=== PATIENT | male | born 1950 | race Caucasian/White ===

== ENCOUNTER 2018-06-21 16:09 | Inpatient (IN) | payer OTHER ==
--- NOTE | 2018-06-21 16:39 | ERNOTE ---
<Braxton Kumari - Last Filed: 06/21/18 18:59> Medical Problem HPI - General Chief Complaint: Fever Time Seen by Provider: 06/21/18 16:10 - Immun/Allergies/Home Medications Immunizations: IMMUNIZATION HX Immunizations Up to Date Yes History of Influenza Vaccine Yes Hx Pneumococcal Vaccination Yes Allergies/Adverse Reactions: Allergies No Known Allergies Allergy (Verified 04/16/18 19:40) Home Medications: HOME MEDICATIONS Furosemide 20 mg PO DAILY 06/21/18 [Last Taken Unknown] Gemfibrozil 600 mg PO BID 06/21/18 [Last Taken Unknown] Levothyroxine Sodium [Synthroid] 100 mcg PO DAILY 06/21/18 [Last Taken Unknown] Lisinopril 2.5 mg PO DAILY 06/21/18 [Last Taken Unknown] glipiZIDE [Glipizide] 5 mg PO DAILY 06/21/18 [Last Taken Unknown] metFORMIN HCL [Glucophage] 1,000 mg PO DAILY 06/21/18 [Last Taken Unknown] Medical History (Last Reviewed 06/21/18 @ 16:30 by REBEKAH Cook) Cirrhosis of liver Depression Deviated septum Diabetes type 2, controlled HTN (hypertension) Hx of labyrinthitis Hyperlipemia Hypothyroidism Malignant neoplasm of right kidney Nonalcoholic steatohepatitis PTSD (post-traumatic stress disorder) Surgical History: Surgical History (Last Reviewed 06/21/18 @ 16:30 by REBEKAH Cook) History of nephrectomy Family History: Family History (Last Reviewed 06/21/18 @ 16:30 by REBEKAH Cook) Family/Other Diabetes Mother Myocardial infarction Father Myocardial infarction Social History: Preferred Language Croatian Do you have any judaism or No cultural preference? Smoking Status Never smoker Alcohol Use none Drug Use none ED Progress - Vital Signs Vital Signs: Vital Signs 06/21/18 16:23 06/21/18 16:34 06/21/18 16:57 Temperature 38.1 C H 38.1 C H Pulse Rate 113 H 113 H 105 H Respiratory Rate 23 H 23 H 31 H Blood Pressure 151/76 H 151/76 H 151/76 H O2 Sat by Pulse Oximetry 96 96 95 06/21/18 17:27 06/21/18 18:05 Temperature 38.0 C Pulse Rate 95 110 H Respiratory Rate 21 H 58 H Blood Pressure 133/60 152/79 H O2 Sat by Pulse Oximetry 95 95 - Progress/Reassessment Chief Complaint: Fever Plan - Plan Plan: Under ultrasound guidance and ideal spot was determined for the paracentesis of the abdomen. Betadine was applied for sterilization of the site and after lidocaine 2 for anesthesia, an 11 blade was used to make a small incision. Standard paracentesis trocar with the catheter was put in place and approximately 10 L plus of fluid was removed from the patient's abdomen. Patient tolerated the procedure very well and the area was cleaned and a bandage was put in place. Patient's vital signs remained stable through the entire process and the fluid will be sent over to laboratory for thorough evaluation. Signed: Braxton Kumari DO Departure Clinical Impression: Liver cirrhosis Qualifiers: Hepatic cirrhosis type: unspecified hepatic cirrhosis Ascites presence: with ascites Qualified Code(s): K74.60 - Unspecified cirrhosis of liver; R18.8 - Other ascites - Departure Disposition: Short Term Hospital Inpatient Condition: Good <Viktoria Eaton - Last Filed: 06/21/18 19:15> Medical Problem HPI - Narrative Date of Service: 06/21/18 - General Source: patient Exam Limitations: no limitations - Immun/Allergies/Home Medications Immunizations: IMMUNIZATION HX Immunizations Up to Date Yes History of Influenza Vaccine Yes Hx Pneumococcal Vaccination Yes - Pain Score Pain Score #1 Pain Score: 0 - History of Present History Narrative: The patient is a 68 year old male who presents for abdominal distention with 35 pound weight gain which has been gradual since April. There are associated symptoms of productive cough, dyspnea and malaise. The patient denies pain, appears uncomfortable. There are no alleviating factors. There are no aggravating factors. Previous treatments have included: none. The past medical history includes: renal carcinoma with nephrectomy, non-alcoholic liver cirrhosis, hypothyroid, HTN, HLD, DM II and depression. . The social history is negative. The patient has had no ill contacts. Patient presents to ER with instruction from JOSÉ MIGUEL Rico due to 35 pound weight gain with increasing abdominal girth since April. JOSÉ MIGUEL Rico referred patient to hospital due to no bed availability and need for paracentesis. Review of Systems - Review of Systems Constitutional: Present: chills, fatigue, malaise, other - weight gain EYE: Present: no symptoms reported ENT: Present: no symptoms reported Respiratory: Present: shortness of breath, cough Cardiology: Present: no symptoms reported. Absent: chest pain Gastrointestinal/Abdominal: Present: abdominal pain, other - increased abdominal girth. Absent: nausea, vomiting, diarrhea Genitourinary: Present: frequency. Absent: dysuria Musculoskeletal: Present: no symptoms reported Skin: Present: other - edema Neurological: Present: no symptoms reported Endocrine: Present: no symptoms reported Hematologic/Lymphatic: Present: no symptoms reported Psych: Present: no symptoms reported All Other Systems: All systems neg except as marked Medical History (Last Reviewed 06/21/18 @ 16:30 by REBEKAH Cook) Cirrhosis of liver Depression Deviated septum Diabetes type 2, controlled HTN (hypertension) Hx of labyrinthitis Hyperlipemia Hypothyroidism Malignant neoplasm of right kidney Nonalcoholic steatohepatitis PTSD (post-traumatic stress disorder) Surgical History: Surgical History (Last Reviewed 06/21/18 @ 16:30 by REBEKAH Cook) History of nephrectomy Family History: Family History (Last Reviewed 06/21/18 @ 16:30 by REBEKAH Cook) Family/Other Diabetes Mother Myocardial infarction Father Myocardial infarction Social History: Preferred Language Croatian Do you have any judaism or No cultural preference? Smoking Status Never smoker Alcohol Use none Drug Use none Physical Exam - Physical Exam General Appearance: Present: wd/wn, alert, no apparent distress Head Exam: Present: normal inspection Eye Exam: Normal inspection: bilateral Respiratory: Present: normal breath sounds, lungs clear, accessory muscle use Cardiovascular/Chest: Present: no murmur, tachycardia Peripheral Pulses: N=norm/S=strong/W=weak/B=bound/A=absent: Radial (R): Normal Gastrointestinal/Abdominal: Present: normal bowel sounds, tenderness - diffuse, distended, other - firm 2+ pitting edema to abdomen with firmness and distention, slight erythema to lower abdomen Extremity Exam: Present: extremity edema - 2+ pitting bilateral lower extremities Neurological Exam: Present: alert, oriented, normal mood/affect Skin Exam: Present: normal color ED Progress - Date and Time Seen: Date and Time: 06/21/18 19:09 Dr. Kumari was in with patient for paracentesis, patient tolerated procedure well. 10 L plus of peritoneal fluid removed. Fluid dark nicolas in color, wound was covered with bandage post procedure, bleeding controlled, patient tolerated procedure well. Patient will be admitted under the care of Dr. Rivas for treatment of spontaneous bacterial peritonitis and pneumonia. Patient appears to be much more comfortable postprocedure and markedly improved with ease of respirations. - Results and Orders Patient's Lab Results:: I have reviewed the patient's lab results. - Vital Signs Patient's Vital Signs:: I have reviewed the patient's vital signs. Vital Signs: Vital Signs 06/21/18 16:23 Temperature 38.1 C H Pulse Rate 113 H Respiratory Rate 23 H Blood Pressure 151/76 H O2 Sat by Pulse Oximetry 96 - EKG EKG: other - sinus tachycardia EKG read: Reviewed by me EKG Comments: reviewed with . - X-Ray X-Ray #1 X-Ray: chest Interpretation: Reviewed by me X-ray Comments: X-RAY REPORT ~[id number] RAD/Chest PA & Lateral *~ Exam Date: 06/21/2018 17:55 Ordering Physician: Viktoria Eaton HISTORY: fever TWO VIEW CHEST Comparison: NONE . Comparison is made with prior chest CT dated 05/04/2018 Technique: Upright frontal and lateral views of the chest were obtained. Findings: The cardiac silhouette is within normal limits of size. The mediastinum and hilum are with in normal limits. Again seen is bilateral pleural plaque. The lung markings are little prominent in the right infrahilar area and periphery of the left lower lung zone, which may reflect subtle infiltrates. The remaining lung lyons appear clear. I do not see evidence for pleural effusion. IMPRESSION: 1. BILATERAL PLEURAL PLAQUE. 2. QUESTIONABLE SUBTLE INFILTRATES IN RIGHT INFRAHILAR AND LEFT LOWER LUNG ZONE Electronically signed by Dwight Alcantar M.D.. - CT/Ultrasound CT/Ultrasound Narrative: X-RAY REPORT ~[id number] ULT/US Abd Single Organ (Limited)~ Exam Date: 06/21/2018 16:46 Ordering Physician: Viktoria Eaton History: Ascites. Technique: Multiple transabdominal grayscale, color ultrasound images of the abdomen were performed to evaluate for ascites. Comparisons: None available. Findings: There is a small amount of ascites visualized throughout the abdomen including the right upper, left upper, right lower and left lower quadrant. IMPRESSION: Small amount of abdominal ascites throughout the four quadrants of the abdomen. Electronically signed by Dayna Patterson D.O..
[2018-06-21 16:59] LABS: Hematocrit 30.4 % (42.0-52.0); Hemoglobin 10.1 gm/dL (13.5-18.0); Mean Cell Volume 89.4 fl (78-100); Mean Corpuscular Hemoglobin 29.7 pg (27-31); Mean Corpuscular Hgb Conc 33.2 g/dl (32-36); Mean Platelet Volume 9.7 fl (8-11.3); Neutrophil # 3.6 K/mm3 (1.3-6.0); Neutrophil % 64.6 % (42-75.0); Platelet Count 163 K/mm3 (150-450); Red Cell Distribution Width 19.9 % (11.5-14.0); White Blood Count 5.6 K/mm3 (4.0-10.5)
[2018-06-21 17:08] LABS: Albumin * 1.8 gm/dl (3.4-5.0); Anion Gap 10.6 mmol/L (6.8-13.8); Bilirubin, Total 1.6 mg/dL (0.0-1.1); Ca. Corrected For Albumin 9.5 mg/dL (8.4-10.2); Calcium * 8.1 mg/dL (7.9-10.9); Potassium 3.6 mmol/L (3.4-4.6); Total Protein 6.3 gm/dL (6.2-8.2)
[2018-06-21] MEDS ORDERED: IBUPROFEN 600 MG TABLET PO ONE (18:00)
[2018-06-21 18:54] LABS: Magnesium 1.7 mg/dL (1.2-2.8)
[2018-06-21] MEDS ORDERED: IBUPROFEN 600 MG TABLET ONE (19:01)
[2018-06-21 19:02] LABS: Prothrombin Time (Patient) 16.1 Seconds (9.0-11.0)
[2018-06-21 19:05] LABS: INR 1.6 INR (0.90-1.10)
[2018-06-21] MEDS: CEFOTAXIME SODIUM 2,000 MG in DEXTROSE 5 % IN WATER 100 ML IV SCH ×2 (19:23)
[2018-06-21 19:39] LABS: Body Fluid WBC 3484 /uL (0-1000)
--- NOTE | 2018-06-21 20:54 | HP ---
Chief Complaint - Chief Complaint Date of Service: 06/21/18 Time of Service: 08:30 Chief Complaint: Abdominal swelling, sob, cough, History of Present Illness: 2 months ago the patient was diagnosed with renal cell carcinoma and had the right nephrectomy done. All the procedure he began developing increasing abdominal girth. This was interfering with his ability to breathe: Shortness of breath and also increased leg edema. [facility] [place] [facility]. Doctor Kenyetta performed a ultrasound guided paracentesis in the emergency room and drained over 10 L of fluid from the abdomen. Naturally Mr. Go is feeling much better and breathing much easier now. He had a CT scan of the chest and abdomen shows some residual ascites still present and the chest x-ray shows perihilar pneumonitis. He is diagnosed with nonalcoholic hepatic steatosis with cirrhosis and with spontaneous bacterial peritonitis etiology unknown. This time of my exam he is comfortable conversational and in good spirits. I anticipate length of stay of about 3 days. Medical History (Last Reviewed 06/21/18 @ 19:56 by Uma Patterson RN) Cirrhosis of liver Depression Deviated septum Diabetes type 2, controlled HTN (hypertension) Hx of labyrinthitis Hyperlipemia Hypothyroidism Malignant neoplasm of right kidney Nonalcoholic steatohepatitis PTSD (post-traumatic stress disorder) Surgical History: Surgical History (Last Reviewed 06/21/18 @ 19:56 by Uma Patterson RN) History of nephrectomy Family History: Family History (Last Reviewed 06/21/18 @ 19:56 by Uma Patterson RN) Family/Other Diabetes Mother Myocardial infarction Father Myocardial infarction Social History: Patient Lives/Resources Home Utilized Occupation [employer] at [employer] Preferred Language Kittitian Do you have any synagogue or Yes: zoroastrian cultural preference? Smoking Status Former smoker Have you smoked in the past 12 No months Alcohol Use none Drug Use none Review Of Systems (GEN) - Review of Systems Generalized/Overall Review: Present: Weakness, Chills, Fever, Weight gain - He estimates 35 pounds of weight gain in the past 2 months. EENTM: Present: No Symptoms Reported Respiratory: Present: Cough, Shortness of Breath Cardiac: Present: No Symptoms Reported Abdominal: Present: Abdominal Pain, Other - Marked increase in abdominal girth due to ascites Genitourinary: Present: No Symptoms Reported, Other - Right renal carcinoma with right nephrectomy 2 months ago Musculoskeletal: Present: No Symptoms Reported Neurological: Present: No Symptoms Reported Skin: Present: No Symptoms Reported Endocrine: Present: No Symptoms Reported - Mr. Go notes that he was airborne [place] and the lower and was exposed to agent orange [facility]. [facility] but he knows that he was. He believes SY he developed a renal carcinoma and may be other problems that he is having at this time. Immunizations: IMMUNIZATION HX Immunizations Up to Date Yes History of Influenza Vaccine Yes Hx Pneumococcal Vaccination Yes Allergies/Adverse Reactions: Allergies Allergy/AdvReac Type Severity Reaction Status Date / Time No Known Allergies Allergy Verified 06/21/18 19:57 Home Medications: HOME MEDICATIONS Furosemide 20 mg PO DAILY 06/21/18 [Last Taken Unknown] Gemfibrozil 600 mg PO BID 06/21/18 [Last Taken Unknown] Levothyroxine Sodium [Synthroid] 100 mcg PO DAILY 06/21/18 [Last Taken Unknown] Lisinopril 2.5 mg PO DAILY 06/21/18 [Last Taken Unknown] glipiZIDE [Glipizide] 5 mg PO DAILY 06/21/18 [Last Taken Unknown] metFORMIN HCL [Glucophage] 1,000 mg PO DAILY 06/21/18 [Last Taken Unknown] Exam - Exam Vital Signs: Vital Signs - Last Taken Temp 37.1 C 06/21/18 19:31 Pulse 97 06/21/18 19:31 Resp 20 06/21/18 19:31 BP 124/65 06/21/18 19:31 Pulse Ox 98 06/21/18 19:31 Constitutional: Present: Alert, Oriented x3, Cooperative, Well developed, Well nourished, Mild distress, Middle aged, Obese ENT Exam: Present: normal ENT inspection, hearing grossly normal, pharynx normal , TMs normal Eye Exam: bilateral eye: normal inspection, PERRL, EOMI Neck: Present: non-tender, full range of motion, supple, normal inspection, trachea midline Back Exam: Present: normal inspection, no CVA tenderness, no vertebral tenderness Breasts: Present: Exam deferred Respiratory: Present: chest non-tender, lungs clear, normal breath sounds, accessory muscle use - Resolved after paracentesis. Cardiovascular/Chest: Present: normal peripheral pulses, regular rate, rhythm, no chest tenderness, no gallop, no JVD, no murmur, no rub, edema Peripheral Pulses: carotid (R): 2+, carotid (L): 2+, radial (R): 2+, radial (L) : 2+ Abdomen: Present: Normal bowel sounds, soft, nontender, nondistended, no rebound tenderness - Despite of removing over 10 L of ascites fluid he continues to have a positive succussion splash. /Rectal: Present: Exam deferred Extremity: Present: normal range of motion, non-tender, normal inspection, swelling Skin Exam: Present: normal color, warm/dry, no cyanosis, cool/dry, diaphoresis. Absent: jaundice Lymphatic: Present: no adenopathy Neurologic: Present: can vacuum tester II-XII nml as tested, no motor/sensory deficits, alert , normal mood/affect, oriented x 3 Appearance: Present: appropriate appearance, appropriate insight Eye contact: Present: cooperative, good eye contact, normal speech Thoughts: Present: normal thought pattern, no apparent hallucination Diagnostic Studies: Abnormal Lab Results 06/21/18 06/21/18 06/21/18 Range/Units 16:50 16:50 18:55 RBC 3.40 L (4.7-6.0) M/mm3 Hgb 10.1 L (13.5-18.0) gm/dL Hct 30.4 L (42.0-52.0) % RDW 19.9 H (11.5-14.0) % Lymphocytes % 16.7 L (20-51) % Monocytes % 15.1 H (0.0-9) % Lymphocytes # 0.93 L (1.5-3.5) k/mm3 PT (9.0-11.0) Seconds INR (Anticoag Therapy) (0.90-1.10) INR Total Bilirubin 1.6 H (0.0-1.1) mg/dL ALT 18 L (19-67) U/L Albumin 1.8 L (3.4-5.0) gm/dl Fluid WBC 3484 H (0-1000) /uL Fluid RBC Greater than 1000.0 H (0-1000) /uL 06/21/18 Range/Units Unknown RBC (4.7-6.0) M/mm3 Hgb (13.5-18.0) gm/dL Hct (42.0-52.0) % RDW (11.5-14.0) % Lymphocytes % (20-51) % Monocytes % (0.0-9) % Lymphocytes # (1.5-3.5) k/mm3 PT 16.1 H (9.0-11.0) Seconds INR (Anticoag Therapy) 1.60 H (0.90-1.10) INR Total Bilirubin (0.0-1.1) mg/dL ALT (19-67) U/L Albumin (3.4-5.0) gm/dl Fluid WBC (0-1000) /uL Fluid RBC (0-1000) /uL Laboratory Results WBC 5.6 K/mm3 (4.0-10.5) 06/21/18 16:50 RBC 3.40 M/mm3 (4.7-6.0) L 06/21/18 16:50 Hgb 10.1 gm/dL (13.5-18.0) L 06/21/18 16:50 Hct 30.4 % (42.0-52.0) L 06/21/18 16:50 MCV 89.4 fl (78-100) 06/21/18 16:50 MCH 29.7 pg (27-31) 06/21/18 16:50 MCHC 33.2 g/dl (32-36) 06/21/18 16:50 RDW 19.9 % (11.5-14.0) H 06/21/18 16:50 Plt Count 163 K/mm3 (150-450) 06/21/18 16:50 MPV 9.7 fl (8-11.3) 06/21/18 16:50 Immature Gran % (Auto) 0.40 % (0.001-0.429) 06/21/18 16:50 Immature Gran # (Auto) 0.02 K/mm3 (0.000-0.0310) 06/21/18 16:50 Neutrophils % 64.6 % (42-75.0) 06/21/18 16:50 Lymphocytes % 16.7 % (20-51) L 06/21/18 16:50 Monocytes % 15.1 % (0.0-9) H 06/21/18 16:50 Eosinophils % 2.7 % (0.0-3.0) 06/21/18 16:50 Basophils % 0.5 % (0.0-1.0) 06/21/18 16:50 Nucleated RBC % 0.0 k/mm3 (0-1) 06/21/18 16:50 Neutrophils # 3.6 K/mm3 (1.3-6.0) 06/21/18 16:50 Lymphocytes # 0.93 k/mm3 (1.5-3.5) L 06/21/18 16:50 Monocytes # 0.8 k/mm3 (0.0-1.0) 06/21/18 16:50 Eosinophils # 0.2 k/mm3 (0.0-0.7) 06/21/18 16:50 Absolute Basophils 0.0 k/mm3 (0.0-0.1) 06/21/18 16:50 PT 16.1 Seconds (9.0-11.0) H 06/21/18 Unknown INR (Anticoag Therapy) 1.60 INR (0.90-1.10) H 06/21/18 Unknown Sodium 137 mmol/L (132-142) 06/21/18 16:50 Plasma Sodium 137 mmol/L (130-142) 06/21/18 16:50 Potassium 3.6 mmol/L (3.4-4.6) 06/21/18 16:50 Chloride 105 mmol/L (97-106) 06/21/18 16:50 Carbon Dioxide 25.0 mmol/L (24-32.6) 06/21/18 16:50 Anion Gap 10.6 mmol/L (6.8-13.8) 06/21/18 16:50 BUN 19 mg/dL (6-23) 06/21/18 16:50 Creatinine 1.19 mg/dL (0.4-1.4) 06/21/18 16:50 Est GFR (Non-Af Amer) 65 mL/min (60-130) 06/21/18 16:50 BUN/Creatinine Ratio 16.0 (9.0-21.6) 06/21/18 16:50 Random Glucose 83 mg/dL (70-110) 06/21/18 16:50 Lactic Acid, Venous 1.8 mmol/L (0.4-2.0) 06/21/18 16:50 Calcium 8.1 mg/dL (7.9-10.9) 06/21/18 16:50 Calcium Adj for Albumin 9.5 mg/dL (8.4-10.2) 06/21/18 16:50 Magnesium 1.7 mg/dL (1.2-2.8) 06/21/18 18:55 Total Bilirubin 1.6 mg/dL (0.0-1.1) H 06/21/18 16:50 AST 41 U/L (0-48) 06/21/18 16:50 ALT 18 U/L (19-67) L 06/21/18 16:50 Alkaline Phosphatase 84 U/L (50-170) 06/21/18 16:50 Total Protein 6.3 gm/dL (6.2-8.2) 06/21/18 16:50 Albumin 1.8 gm/dl (3.4-5.0) L 06/21/18 16:50 Amylase 65 U/L (25-115) 06/21/18 16:50 Lipase 223 U/L (73-393) 06/21/18 16:50 Fluid WBC 3484 /uL (0-1000) H 06/21/18 18:55 Fluid RBC Greater than 1000.0 /uL (0-1000) H 06/21/18 18:55 Peritoneal Tot Protein 1.9 gm/dL 06/21/18 18:55 Peritoneal Albumin 0.5 gm/dL 06/21/18 18:55 Peritoneal LDH 78 U/L 06/21/18 18:55 Peritoneal Glucose 75 mg/dL 06/21/18 18:55 Peritoneal Amylase 18 U/L 06/21/18 18:55 Assessment/Plan - Narrative Narrative: In spite of his having a left kidney his left renal function is excellent with an EGFR 65. And in spite of having all of this abdominal ascites his transaminases are completely normal. Bilirubin is slightly elevated at 1.6 and alkaline phosphatase is normal. His serum albumin is very low at 1.8. Initial evaluation of the peritoneal fluid shows it to be rich in protein. They're firm red cells but only a few white cells. I'll review the results of this with pathology tomorrow. Cytology and cultures of course are still pending. He 'll be started on pneumonia protocol. He is also a [id number] diabetic and I'll continue him on a consistent carb diet. - Assessment/Plan (1) Cirrhosis of liver with ascites Problem: Acute (2) Pneumonia Problem: Acute (3) Nonalcoholic hepatosteatosis Problem: Chronic (4) Edema Problem: Acute (5) Renal carcinoma Problem: Resolved (6) right nephrectomy Problem: Resolved (7) Hypoalbuminemia Problem: Acute
[2018-06-21] MEDS ORDERED: ALBUTEROL SULFATE 2.5 MG/0.5 ML VIAL.NEB IH SCH (21:30)
[2018-06-21 21:57] LABS: Body Fluid Appearance CLOUDY (CLEAR); Body Fluid Color YELLOW (COLORLESS)
[2018-06-22] MEDS: CEFOTAXIME SODIUM 2,000 MG in DEXTROSE 5 % IN WATER 100 ML IV SCH ×6 (02:47→18:03)
[2018-06-22] MEDS: HYDROcodone/ACETAMINOPHEN 1 EACH TABLET PO PRN ×2 (03:58→19:24)
[2018-06-22 05:53] LABS: Anion Gap 6.4 mmol/L (6.8-13.8); Calcium * 7.8 mg/dL (7.9-10.9); Carbon Dioxide 28.1 mmol/L (24-32.6); Estimated Creat Clear 63.2; Potassium 3.5 mmol/L (3.4-4.6)
[2018-06-22 05:59] LABS: Hematocrit 30.4 % (42.0-52.0); Hemoglobin 9.8 gm/dL (13.5-18.0); Mean Cell Volume 90.5 fl (78-100); Mean Corpuscular Hemoglobin 29.2 pg (27-31); Mean Corpuscular Hgb Conc 32.2 g/dl (32-36); Neutrophil # 2.3 K/mm3 (1.3-6.0); Neutrophil % 55.3 % (42-75.0); Platelet Count 159 K/mm3 (150-450); Red Blood Count 3.36 M/mm3 (4.7-6.0); Red Cell Distribution Width 19.9 % (11.5-14.0); White Blood Count 4.1 K/mm3 (4.0-10.5)
[2018-06-22] MEDS: ALBUTEROL SULFATE 2.5 MG/0.5 ML VIAL.NEB IH SCH ×4 (06:05→18:22)
[2018-06-22] MEDS ORDERED: LEVOTHYROXINE SODIUM 100 MCG TABLET PO SCH (07:00)
[2018-06-22] MEDS ORDERED: glipiZIDE 5 MG TABLET PO SCH (09:00)
[2018-06-22] MEDS ORDERED: LISINOPRIL 5 MG TABLET PO SCH (09:00)
[2018-06-22] MEDS ORDERED: LISINOPRIL 2.5 MG TABLET PO SCH (09:00)
--- NOTE | 2018-06-22 11:22 | PN ---
Subjective - Date and Time Seen Date: 06/22/18 Time: 08:30 Subjective Narrative: Mr. Go is a 68-year-old male who is sitting up in chair time I came in. He is alert oriented conversant and pleasant. He is in no distress at time of my exam. He has continued to leak large amounts of peritoneal fluid from his abdomen through the night saturating multiple AVD pads and dressing changes. He believes it is slowed down a little bit this morning. I spoke with Dr. Robledo this morning about the lab work findings and the peritoneal fluid analysis. He doesn't see any cancer cells. No fluid. He believes that the stage TIII renal cancer was a T3 because it was invading the renal veins. He is concerned that there may be a portal obstruction from that now and imaging needs to be done. We also discussed the discrepancy between his normal total protein and very low albumin and wondering which protein is making up the difference. He has recommended both serum for pheresis and Bence- Leong proteins of the urine which I cannot were the Bence-Leong. It has been replaced with the urine immunoelectrophoresis and that is ordered. Cultures are still pending as well. The cytology most favors a bacterial peritonitis but it doesn't fit clinically because it is not having any abdominal tenderness. Pressure around his abdomen and did succussion splash testing yesterday and there was no guarding or complaints of discomfort. Further he is afebrile. I reviewed all of this with Mr. Go is morning. He is aware that the electrophoresis procedures are send out studies. I also spoke at length with Dr. Paris to apprise him of the history and I have ordered a CT of the abdomen with contrast looking for portal or inferior vena caval obstruction. The [facility] has called and stated that she'll do not have any room for him but want to call us back as soon as they do so that we will transfer him there. Mr. Go is unsure as to whether he wants to go to the [facility] or pay the difference for staying here out of pocket. He'll probably be able to make a better decision unless he has some idea of the dollars that are being his responsibility. Case management will try to get him a close figure on that. Objective - Review of Systems Generalized/Overall Review: Reports: Weakness EENTM: Reports: No Symptoms Reported Respiratory: Reports: Shortness of Breath Cardiac: Reports: No Symptoms Reported Abdominal: Reports: Other - Abdominal ascites. Denies: No Symptoms Reported, Abdominal Pain Genitourinary Symptoms: Reports: No Symptoms Reported Musculoskeletal Complaints: Reports: No Symptoms Reported Neurological: Reports: No Symptoms Reported Skin: Reports: No Symptoms Reported Endocrine: Reports: No Symptoms Reported - Vitals Vitals: Last Vital Signs Temp 36.8 C 06/22/18 10:30 Pulse 86 06/22/18 10:30 Resp 18 06/22/18 10:30 BP 115/53 06/22/18 10:30 Pulse Ox 98 06/22/18 10:30 - Abnormal Lab Findings Abnormal Lab Findings: Abnormal Lab Results 06/21/18 06/21/18 06/21/18 Range/Units 16:50 16:50 18:55 RBC 3.40 L (4.7-6.0) M/mm3 Hgb 10.1 L (13.5-18.0) gm/dL Hct 30.4 L (42.0-52.0) % RDW 19.9 H (11.5-14.0) % Lymphocytes % 16.7 L (20-51) % Monocytes % 15.1 H (0.0-9) % Eosinophils % (0.0-3.0) % Lymphocytes # 0.93 L (1.5-3.5) k/mm3 PT (9.0-11.0) Seconds INR (Anticoag Therapy) (0.90-1.10) INR Anion Gap (6.8-13.8) mmol/L Random Glucose (70-110) mg/dL Calcium (7.9-10.9) mg/dL Total Bilirubin 1.6 H (0.0-1.1) mg/dL ALT 18 L (19-67) U/L Albumin 1.8 L (3.4-5.0) gm/dl Fluid WBC 3484 H (0-1000) /uL Fluid RBC Greater than 1000.0 H (0-1000) /uL 06/21/18 06/22/18 06/22/18 Range/Units Unknown 05:35 05:35 RBC 3.36 L (4.7-6.0) M/mm3 Hgb 9.8 L (13.5-18.0) gm/dL Hct 30.4 L (42.0-52.0) % RDW 19.9 H (11.5-14.0) % Lymphocytes % (20-51) % Monocytes % 17.0 H (0.0-9) % Eosinophils % 4.9 H (0.0-3.0) % Lymphocytes # 0.91 L (1.5-3.5) k/mm3 PT 16.1 H (9.0-11.0) Seconds INR (Anticoag Therapy) 1.60 H (0.90-1.10) INR Anion Gap 6.4 L (6.8-13.8) mmol/L Random Glucose 66 L (70-110) mg/dL Calcium 7.8 L (7.9-10.9) mg/dL Total Bilirubin (0.0-1.1) mg/dL ALT (19-67) U/L Albumin (3.4-5.0) gm/dl Fluid WBC (0-1000) /uL Fluid RBC (0-1000) /uL - Exam Constitutional: Present: Alert, Oriented x3, Cooperative, Well developed, Well nourished, No distress, Obese ENT Exam: Present: normal ENT inspection, hearing grossly normal, pharynx normal , TMs normal Neck: Present: non-tender, full range of motion, supple, normal inspection, trachea midline Breasts: Present: Nontender Respiratory: Present: chest non-tender, lungs clear, normal breath sounds, no respiratory distress, no accessory muscle use Cardiovascular/Chest: Present: normal peripheral pulses, regular rate, rhythm, no chest tenderness, no edema, no gallop, no JVD, no murmur, no rub Abdomen: Present: Normal bowel sounds, soft, nontender, nondistended, no rebound tenderness, no hepatospenomegaly, other - Positive Succusion splash sign. /Rectal: Present: Exam deferred Extremity: Present: normal range of motion, non-tender, lower extremity edema, pedal edema Skin Exam: Present: normal color, warm/dry, no cyanosis Lymphatic: Present: no adenopathy Neurologic: Present: cloth finishing range back tender II-XII nml as tested, no motor/sensory deficits, alert , normal mood/affect, oriented x 3 Appearance: Present: appropriate appearance, appropriate insight Eye contact: Present: cooperative, good eye contact, normal speech Thoughts: Present: normal thought pattern, no apparent hallucination Assessment/Plan - Problems/Diagnosis (1) Cirrhosis of liver with ascites Problem: Acute (2) Pneumonia Problem: Acute Qualifiers: Laterality: bilateral Lung location: lower lobe of lung (3) Nonalcoholic hepatosteatosis Problem: Chronic (4) Edema Problem: Acute Qualifiers: Edema type: localized Qualified Code(s): R60.0 - Localized edema (5) Renal carcinoma Problem: Resolved Qualifiers: Laterality: right Qualified Code(s): C64.1 - Malignant neoplasm of right kidney, except renal pelvis (6) right nephrectomy Problem: Resolved (7) Hypoalbuminemia Problem: Acute
[2018-06-22 12:49] LABS: Urine Bilirubin 1 mg/dl (NEGATIVE); Urine Blood Negative /ul (NEGATIVE); Urine Ketone 5 mg/dL (NEGATIVE); Urine Nitrite Negative (NEGATIVE); Urine Protein 15 mg/dL (NEGATIVE); Urine Specific Gravity 1.025 SP.GR. (1.005-1.030); Urine Urobilinogen 4 EU/dl (NORMAL)
[2018-06-22 12:57] LABS: Urine Appearance Slightly Cloudy (CLEAR); Urine Bacteria TRACE; Urine Color Dark Yellow; Urine RBC 0-5 /hpf (0-5); Urine WBC TRACE /hpf (0-5)
--- NOTE | 2018-06-22 21:54 | DS ---
Transfer Discharge Summary - Diagnosis(s)/Problems (1) Cirrhosis of liver with ascites Problem: Acute (2) Pneumonia Problem: Acute (3) Nonalcoholic hepatosteatosis Problem: Chronic (4) Edema Problem: Acute (5) Hypoalbuminemia Problem: Acute - Course Description of Stay: Alexandr Go is a 68-year-old male who was admitted through ER. He presented to ER with difficulty with breathing and feeling very swollen around his abdomen. The ER physician did a ultrasound-guided paracentesis and removed over 10 L of fluid. The wound continued to drain excessive amounts of fluid through last night and has pretty much all day today. He is much more current level with all the pressure off of his diaphragm now. The cytology shows quite a few mesothelial cells but this Gram stain shows no bacteria present. Clinically he does not have peritonitis. The cultures are still pending. He had a renal cell carcinoma with right nephrectomy staged as a T3 tumor that was approximately 9 cm in size. He was completely resected but there was some invasion of the renal vein. It is suspected that he may have some portal metastasis causing obstruction of the portal system and causing the ascites. His liver enzymes are completely normal except for bilirubin is slightly elevated at 1.6. He has been given a diagnosis of hepatic steatosis with cirrhosis. The CT scan of the abdomen with contrast that I thought I had ordered this morning either did not get ordered or did not get transmitted. At any rate that study was not performed and is now deferred to the [facility]. They have agreed to accept him in transfer tonight. He'll be transferred by ground EMS. Procedures Performed: none - he did have the paracentesis done in the emergency room - Results and Findings Results and Findings: Laboratory Results - last 24 hr 06/21/18 06/21/18 06/21/18 18:00 18:30 18:30 WBC RBC Hgb Hct MCV MCH MCHC RDW Plt Count MPV Immature Gran % (Auto) Immature Gran # (Auto) Neutrophils % Lymphocytes % Monocytes % Eosinophils % Basophils % Nucleated RBC % Neutrophils # Lymphocytes # Monocytes # Eosinophils # Absolute Basophils Sodium Plasma Sodium Potassium Chloride Carbon Dioxide Anion Gap BUN Creatinine Est GFR (Non-Af Amer) BUN/Creatinine Ratio Random Glucose Lactic Acid, Venous Calcium Urine Color Dark yellow Urine Appearance Slightly cloudy Urine pH 6.0 Ur Specific [place] 1.025 Urine Protein 15 H Urine Glucose (UA) Negative Urine Ketones 5 Urine Blood Negative Urine Nitrate Negative Urine Bilirubin 1 H Urine Urobilinogen 4 H Ur Leukocyte Esterase Negative Urine RBC 0-5 Urine WBC Trace Ur Epithelial Cells 5-10 H Calcium Oxalate Crystal Many - 3+ H Urine Bacteria Trace Urine Culture Comments No culture indicated Fluid Color Fluid Appearance Fluid Neutrophils Fluid Lymphocytes Fluid Monocytes Fluid Other Cells Miscellaneous Cytology Cancelled Spec. sent to path. 06/21/18 06/22/18 06/22/18 18:55 05:35 05:35 WBC 4.1 D RBC 3.36 L Hgb 9.8 L Hct 30.4 L MCV 90.5 MCH 29.2 MCHC 32.2 RDW 19.9 H Plt Count 159 MPV 10.0 Immature Gran % (Auto) 0.20 Immature Gran # (Auto) 0.01 Neutrophils % 55.3 Lymphocytes % 22.1 Monocytes % 17.0 H Eosinophils % 4.9 H Basophils % 0.5 Nucleated RBC % 0.0 Neutrophils # 2.3 Lymphocytes # 0.91 L Monocytes # 0.7 Eosinophils # 0.2 Absolute Basophils 0.0 Sodium 137 Plasma Sodium 136 Potassium 3.5 Chloride 106 Carbon Dioxide 28.1 Anion Gap 6.4 L BUN 19 Creatinine 1.19 Est GFR (Non-Af Amer) 65 BUN/Creatinine Ratio 16.0 Random Glucose 66 L Lactic Acid, Venous Calcium 7.8 L Urine Color Urine Appearance Urine pH Ur Specific [place] Urine Protein Urine Glucose (UA) Urine Ketones Urine Blood Urine Nitrate Urine Bilirubin Urine Urobilinogen Ur Leukocyte Esterase Urine RBC Urine WBC Ur Epithelial Cells Calcium Oxalate Crystal Urine Bacteria Urine Culture Comments Fluid Color Yellow Fluid Appearance Cloudy Fluid Neutrophils 78 Fluid Lymphocytes 12 Fluid Monocytes 3 Fluid Other Cells 7 Miscellaneous Cytology 06/22/18 05:35 WBC RBC Hgb Hct MCV MCH MCHC RDW Plt Count MPV Immature Gran % (Auto) Immature Gran # (Auto) Neutrophils % Lymphocytes % Monocytes % Eosinophils % Basophils % Nucleated RBC % Neutrophils # Lymphocytes # Monocytes # Eosinophils # Absolute Basophils Sodium Plasma Sodium Potassium Chloride Carbon Dioxide Anion Gap BUN Creatinine Est GFR (Non-Af Amer) BUN/Creatinine Ratio Random Glucose Lactic Acid, Venous 1.4 Calcium Urine Color Urine Appearance Urine pH Ur Specific [place] Urine Protein Urine Glucose (UA) Urine Ketones Urine Blood Urine Nitrate Urine Bilirubin Urine Urobilinogen Ur Leukocyte Esterase Urine RBC Urine WBC Ur Epithelial Cells Calcium Oxalate Crystal Urine Bacteria Urine Culture Comments Fluid Color Fluid Appearance Fluid Neutrophils Fluid Lymphocytes Fluid Monocytes Fluid Other Cells Miscellaneous Cytology - Medications Medications: Active Medications Hydrocodone Bitart/Acetaminophen ([place] 5-325) 1 each PO Q6H PRN PRN Reason: Pain Stop: 07/22/18 03:33 Last Admin: 06/22/18 19:24 Dose: 1 each Albuterol Sulfate (Albuterol Sulfate 2.5 Mg/0.5ml) 2.5 mg IH QIDRT [facility] Stop: 07/22/18 07:01 Last Admin: 06/22/18 18:22 Dose: 2.5 mg Cefotaxime Sodium 2,000 mg/ (Dextrose/Water) 100 mls @ 200 mls/hr IV Q8H [facility]; Protocol Stop: 06/23/18 03:45 Last Infusion: 06/22/18 18:33 Dose: Infused Levothyroxine Sodium (Synthroid) 100 mcg PO QDAC [facility] Stop: 07/22/18 07:01 Last Admin: 06/22/18 06:34 Dose: 100 mcg Lisinopril (Zestril) 2.5 mg PO DAILY [facility] Stop: 07/22/18 09:01 Last Admin: 06/22/18 08:31 Dose: 2.5 mg Metformin HCl (Glucophage) 1,000 mg PO DAILY [facility] Stop: 07/22/18 09:01 Last Admin: 06/22/18 08:31 Dose: 1,000 mg Discontinued Medications Albuterol Sulfate (Albuterol Sulfate 2.5 Mg/0.5ml) 2.5 mg IH QID [facility] Stop: 07/21/18 21:31 Last Admin: 06/21/18 21:54 Dose: Not Given Glipizide (Glucotrol) 5 mg PO DAILY [facility] Stop: 07/22/18 09:01 Last Admin: 06/22/18 08:31 Dose: 5 mg Ibuprofen (Motrin) 600 mg PO ONCE ONE Stop: 06/21/18 18:01 Last Admin: 06/21/18 19:02 Dose: 600 mg - Disposition Disposition: [place] Facility Condition: Fair Discharge Date: 06/22/18 Discharge Time: 21:30
[2018-06-23 00:32] VITALS: BP 132/66
[2018-06-23] MEDS ORDERED: glipiZIDE 5 MG TABLET PO SCH (09:00)
[2018-06-25 15:52] LABS: Abnormal Protein Band 1 DNR mg/dL (NONE DETECTED); Abnormal Protein Band 2 DNR mg/dL (NONE DETECTED); Abnormal Protein Band 3 DNR mg/dL (NONE DETECTED); Alpha-1-Globulins 5 %; Alpha-2-Globulins 15 %; Protein/Creatinine Ratio 147 mg/g creat (22-128)
[2018-06-25 17:07] LABS: Ab Band 2 DNR g/dL (NONE DETECTED); Ab Band 3 DNR g/dL (NONE DETECTED); Alpha 1 Globulins 0.4 g/dL (0.2-0.3); Alpha 2 Globulins 0.4 g/dL (0.5-0.9); Beta 1 Globulins 0.3 g/dL (0.4-0.6); SEP Albumin 2.3 g/dL (3.8-4.8)
[2018-06-26 08:58] LABS: Protein Total, Random Urine 31 mg/dL (5-25)
== END 2018-06-22 23:50 | DRG 441 ==
LOC: ER 16:09 → MS 18:31
PROVIDERS: ADMIT Family Medicine; ATTEND Family Medicine
CPT/HCPCS: 36415; 49083; 71020; 71046; 76705; 80048; 80053; 81001; 82042; 82150; 82945; 82947; 83605; 83615; 83690; 83735; 84155; 84157; 84165; 84166; 85025; 85610; 87040; 87070; 87205; 88108; 88305; 89051; 93005; 94640; 94664; 96374; 99285

== ENCOUNTER 2018-07-27 01:19 | Observation (INO) | payer MEDICARE, OTHER ==
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
[2018-07-27 01:44] LABS: Hemoglobin 12.3 gm/dL (13.5-18.0); Mean Cell Volume 88.3 fl (78-100); Mean Corpuscular Hemoglobin 29.4 pg (27-31); Mean Corpuscular Hgb Conc 33.2 g/dl (32-36); Mean Platelet Volume 9.7 fl (8-11.3); Neutrophil # 3.9 K/mm3 (1.3-6.0); Neutrophil % 72.2 % (42-75.0); Platelet Count 141 K/mm3 (150-450); Red Blood Count 4.19 M/mm3 (4.7-6.0); Red Cell Distribution Width 19.5 % (11.5-14.0); White Blood Count 5.4 K/mm3 (4.0-10.5)
[2018-07-27 02:13] LABS: ALT 14 U/L (19-67); AST 54 U/L (0-48); Alkaline Phosphatase * 110 U/L (50-170); Anion Gap 13.1 mmol/L (6.8-13.8); BUN/Creatinine Ratio 24.3 (9.0-21.6); Bilirubin, Total 1.1 mg/dL (0.0-1.1); Blood Urea Nitrogen 49 mg/dL (6-23); Ca. Corrected For Albumin 10.2 mg/dL (8.4-10.2); Calcium * 9.7 mg/dL (7.9-10.9); Carbon Dioxide 27.4 mmol/L (24-32.6); Chloride 99 mmol/L (97-106); Glucose * 116 mg/dL (70-110); Potassium 4.5 mmol/L (3.4-4.6); Sodium 135 mmol/L (132-142); Total Protein 8.6 gm/dL (6.2-8.2)
[2018-07-27 02:14] LABS: Urine Bilirubin Negative (NEGATIVE); Urine Blood Negative /ul (NEGATIVE); Urine Ketone Negative (NEGATIVE); Urine Nitrite Negative (NEGATIVE); Urine Protein Negative (NEGATIVE); Urine Specific Gravity 1.015 SP.GR. (1.005-1.030); Urine Urobilinogen Normal (NORMAL)
[2018-07-27 02:20] LABS: Urine Appearance Clear (CLEAR); Urine Bacteria None Seen; Urine Color Yellow; Urine RBC 0-5 /hpf (0-5); Urine WBC None Seen /hpf (0-5)
[2018-07-27] MEDS ORDERED: NORMAL SALINE 1,000 ML IV ONE ×2 (02:21→07:20)
[2018-07-27 02:31] LABS: Cocaine Ur Negative (NEGATIVE); Urine Barbiturate Negative (NEGATIVE); Urine Benzodiazepines Negative (NEGATIVE); Urine Opiates Negative (NEGATIVE); Urine PCP Negative (NEGATIVE); Urine THC Negative (NEGATIVE)
--- NOTE | 2018-07-27 08:40 | HP ---
Chief Complaint - Chief Complaint Date of Service: 07/27/18 Time of Service: 08:39 Chief Complaint: confusion History of Present Illness: Patient seen and examined without family members present. History obtained from chart review and case management. He has a PMHx of renal cell carcinoma with right nephrectomy, and hepatic steatosis with cirrhosis. He and his traveled to [place] for a PICC line removal yesterday, but the reason for the PICC is not yet known. On the drive home, he was driving erratically, and his called EMS. In the ED, he displayed confusion. No significant electrolyte abnormalities, but his creatinine is elevated to 2.04. His creatinine was 1.3 earlier this month. His ammonia level was 71. This morning, he is unable to give me any medical history, and states "my brain isn't working right," but he is oriented to self and place. He denies other symptoms. Medical History (Last Reviewed 07/27/18 @ 04:43 by Carmen Alegre RN) Cirrhosis of liver Depression Deviated septum Diabetes type 2, controlled HTN (hypertension) Hx of labyrinthitis Hyperlipemia Hypothyroidism Malignant neoplasm of right kidney Nonalcoholic steatohepatitis PTSD (post-traumatic stress disorder) Surgical History: Surgical History (Last Reviewed 07/27/18 @ 04:43 by Carmen Alegre RN) History of nephrectomy R Family History: Family History (Last Reviewed 07/27/18 @ 04:43 by Carmen Alegre RN) Family/Other Diabetes Mother Myocardial infarction Father Myocardial infarction Social History: Patient Lives/Resources Home Utilized 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 Smoking Status Former smoker Have you smoked in the past 12 No months Do you dip or chew tobacco No Alcohol Use none Drug Use none No Social History Section defined Review Of Systems (GEN) - Review of Systems Respiratory: Absent: Cough, Shortness of Breath Cardiac: Absent: Chest Pain Abdominal: Present: Other - recent vomiting, but could not give details Genitourinary: Absent: Burning Skin: Present: No Symptoms Reported Immunizations: IMMUNIZATION HX Immunizations Up to Date Yes History of Influenza Vaccine Yes Hx Pneumococcal Vaccination Yes Allergies/Adverse Reactions: Allergies Allergy/AdvReac Type Severity Reaction Status Date / Time No Known Allergies Allergy Verified 07/27/18 01:33 Home Medications: HOME MEDICATIONS Furosemide 20 mg PO DAILY 06/21/18 [Last Taken Unknown] Gemfibrozil 600 mg PO BID 06/21/18 [Last Taken Unknown] Levothyroxine Sodium [Synthroid] 100 mcg PO DAILY 06/21/18 [Last Taken Unknown] Lisinopril 2.5 mg PO DAILY 06/21/18 [Last Taken Unknown] glipiZIDE [Glipizide] 5 mg PO DAILY 06/21/18 [Last Taken Unknown] metFORMIN HCL [Glucophage] 1,000 mg PO DAILY 06/21/18 [Last Taken Unknown] Exam - Exam Vital Signs: Vital Signs - Last Taken Temp 36.7 C 07/27/18 08:26 Pulse 95 07/27/18 08:26 Resp 16 07/27/18 08:26 BP 104/48 07/27/18 08:26 Pulse Ox 99 07/27/18 08:26 Constitutional: Present: Alert - oriented only to self and location, Cooperative, No distress Respiratory: Present: lungs clear, no respiratory distress Cardiovascular/Chest: Present: regular rate, rhythm Abdomen: Present: Normal bowel sounds Extremity: Absent: pedal edema Appearance: Present: appropriate appearance, impaired recent memory Eye contact: Present: cooperative, good eye contact Diagnostic Studies: Abnormal Lab Results 07/27/18 07/27/18 Range/Units 01:40 01:40 RBC 4.19 L (4.7-6.0) M/mm3 Hgb 12.3 L (13.5-18.0) gm/dL Hct 37.0 L (42.0-52.0) % RDW 19.5 H (11.5-14.0) % Plt Count 141 L (150-450) K/mm3 Lymphocytes % 15.0 L (20-51) % Monocytes % 9.8 H (0.0-9) % Lymphocytes # 0.81 L (1.5-3.5) k/mm3 BUN 49 H D (6-23) mg/dL Creatinine 2.02 H D (0.4-1.4) mg/dL Est GFR (Non-Af Amer) 35 L D (60-130) mL/min BUN/Creatinine Ratio 24.3 H (9.0-21.6) Random Glucose 116 H (70-110) mg/dL AST 54 H (0-48) U/L ALT 14 L (19-67) U/L Total Protein 8.6 H (6.2-8.2) gm/dL Albumin 3.0 L (3.4-5.0) gm/dl Laboratory Results WBC 5.4 K/mm3 (4.0-10.5) 07/27/18 01:40 RBC 4.19 M/mm3 (4.7-6.0) L 07/27/18 01:40 Hgb 12.3 gm/dL (13.5-18.0) L 07/27/18 01:40 Hct 37.0 % (42.0-52.0) L 07/27/18 01:40 MCV 88.3 fl (78-100) 07/27/18 01:40 MCH 29.4 pg (27-31) 07/27/18 01:40 MCHC 33.2 g/dl (32-36) 07/27/18 01:40 RDW 19.5 % (11.5-14.0) H 07/27/18 01:40 Plt Count 141 K/mm3 (150-450) L 07/27/18 01:40 MPV 9.7 fl (8-11.3) 07/27/18 01:40 Immature Gran % (Auto) 0.20 % (0.001-0.429) 07/27/18 01:40 Immature Gran # (Auto) 0.01 K/mm3 (0.000-0.0310) 07/27/18 01:40 Neutrophils % 72.2 % (42-75.0) 07/27/18 01:40 Lymphocytes % 15.0 % (20-51) L 07/27/18 01:40 Monocytes % 9.8 % (0.0-9) H 07/27/18 01:40 Eosinophils % 2.2 % (0.0-3.0) 07/27/18 01:40 Basophils % 0.6 % (0.0-1.0) 07/27/18 01:40 Nucleated RBC % 0.0 k/mm3 (0-1) 07/27/18 01:40 Neutrophils # 3.9 K/mm3 (1.3-6.0) 07/27/18 01:40 Lymphocytes # 0.81 k/mm3 (1.5-3.5) L 07/27/18 01:40 Monocytes # 0.5 k/mm3 (0.0-1.0) 07/27/18 01:40 Eosinophils # 0.1 k/mm3 (0.0-0.7) 07/27/18 01:40 Absolute Basophils 0.0 k/mm3 (0.0-0.1) 07/27/18 01:40 Sodium 135 mmol/L (132-142) 07/27/18 01:40 Plasma Sodium 135 mmol/L (130-142) 07/27/18 01:40 Potassium 4.5 mmol/L (3.4-4.6) 07/27/18 01:40 Chloride 99 mmol/L (97-106) 07/27/18 01:40 Carbon Dioxide 27.4 mmol/L (24-32.6) 07/27/18 01:40 Anion Gap 13.1 mmol/L (6.8-13.8) 07/27/18 01:40 BUN 49 mg/dL (6-23) H D 07/27/18 01:40 Creatinine 2.02 mg/dL (0.4-1.4) H D 07/27/18 01:40 Est GFR (Non-Af Amer) 35 mL/min (60-130) L D 07/27/18 01:40 BUN/Creatinine Ratio 24.3 (9.0-21.6) H 07/27/18 01:40 Random Glucose 116 mg/dL (70-110) H 07/27/18 01:40 Calcium 9.7 mg/dL (7.9-10.9) 07/27/18 01:40 Calcium Adj for Albumin 10.2 mg/dL (8.4-10.2) 07/27/18 01:40 Total Bilirubin 1.1 mg/dL (0.0-1.1) 07/27/18 01:40 AST 54 U/L (0-48) H 07/27/18 01:40 ALT 14 U/L (19-67) L 07/27/18 01:40 Alkaline Phosphatase 110 U/L (50-170) 07/27/18 01:40 Total Protein 8.6 gm/dL (6.2-8.2) H 07/27/18 01:40 Albumin 3.0 gm/dl (3.4-5.0) L 07/27/18 01:40 TSH 2.133 uIU/mL (0.358-3.74) 07/27/18 01:40 Urine Color Yellow 07/27/18 02:10 Urine Appearance Clear (CLEAR) 07/27/18 02:10 Urine pH 6.0 pH (5.0-7.0) 07/27/18 02:10 Ur Specific [place] 1.015 SP.GR. (1.005-1.030) 07/27/18 02:10 Urine Protein Negative mg/dL (NEGATIVE) 07/27/18 02:10 Urine Glucose (UA) Negative mg/dL (NEGATIVE) 07/27/18 02:10 Urine Ketones Negative mg/dL (NEGATIVE) 07/27/18 02:10 Urine Blood Negative /ul (NEGATIVE) 07/27/18 02:10 Urine Nitrate Negative (NEGATIVE) 07/27/18 02:10 Urine Bilirubin Negative mg/dl (NEGATIVE) 07/27/18 02:10 Urine Urobilinogen Normal EU/dl (NORMAL) 07/27/18 02:10 Ur Leukocyte Esterase Negative /ul (NEGATIVE) 07/27/18 02:10 Urine RBC 0-5 /hpf (0-5) 07/27/18 02:10 Urine WBC None seen /hpf (0-5) 07/27/18 02:10 Ur Epithelial Cells 0-5 /hpf (0-5) 07/27/18 02:10 Urine Bacteria None seen (NONE) 07/27/18 02:10 Urine Culture Comments No culture indicated 07/27/18 02:10 Urine Opiates Screen Negative (NEGATIVE) 07/27/18 02:10 Barbiturate Screen Negative (NEGATIVE) 07/27/18 02:10 Ur Phencyclidine Scrn Negative (NEGATIVE) 07/27/18 02:10 Urine Amphetamine Negative (NEGATIVE) 07/27/18 02:10 U Benzodiazepines Scrn Negative (NEGATIVE) 07/27/18 02:10 Urine Cocaine Screen Negative (NEGATIVE) 07/27/18 02:10 Urine Marijuana (THC) Negative (NEGATIVE) 07/27/18 02:10 Ethyl Alcohol Less than 3.0 mg/dL (0.0-10.0) 07/27/18 01:40 Assessment/Plan - Assessment/Plan (1) Confusion Assessment: Patient was not confused during hospitalization one month ago, but can not give details regarding recent hospitalizations. Ddx includes hepatic encephalopathy, medication side effect, infection, hypoxemia, hypoglycemia, space occupying lesion. Ammonia level mildly elevated at 71, making hepatic encaphalopathy likely source. Will start lactulose. No sings of infection, and WBC not elevated. He did, however have a PICC line removed yesterday for an unknown infection. Case management is thankfully working on obtaining records from the [facility]. He is alert and oxygenating on room air. Glucose of 116. Record review shows there was concern for liver mets during recent hospitalization. If MRI has not been done recently, will repeat. Problem: Acute (2) Acute kidney injury Assessment: Creatinine of 2.02, GFR of 35. His creatinine was 1.3 earlier this month. Will administer gentle fluids and recheck BMP this afternoon. Will need to closely monitor fluid balance. He had a paracentesis removing 10 L last month. Problem: Acute (3) Renal cell carcinoma Problem: Chronic (4) Status post nephrectomy Problem: Chronic (5) Liver cirrhosis Assessment: Will need to obtain records from hospitalization at the [facility]. Previous DC summary reports there was suspicion of liver mets. AST and ALT not significantly elevated. Platelets appropriate. Ammonia mildly elevated at 71, and lactulose has been ordered. Problem: Chronic Qualifiers: Hepatic cirrhosis type: unspecified hepatic cirrhosis Ascites presence: with ascites Qualified Code(s): K74.60 - Unspecified cirrhosis of liver; R18.8 - Other ascites (6) Nonalcoholic hepatosteatosis Problem: Chronic (7) Hypoalbuminemia Assessment: Improved from previous. 3.0 today, and was 2.2 during previous admission. Problem: Chronic
[2018-07-27] MEDS: LEVOTHYROXINE SODIUM 100 MCG TABLET PO SCH (09:46)
[2018-07-27] MEDS: LACTULOSE 10 G/15 ML BTL PO SCH ×2 (09:47→20:22)
[2018-07-27 12:02] LABS: Anion Gap 10.5 mmol/L (6.8-13.8); BUN/Creatinine Ratio 27.6 (9.0-21.6); Calcium * 8.6 mg/dL (7.9-10.9); Carbon Dioxide 26.1 mmol/L (24-32.6); Estimated Creat Clear 45.9; Potassium 3.6 mmol/L (3.4-4.6)
--- NOTE | 2018-07-27 13:13 | PN ---
Progess Note - Interim Date: 07/27/18 Time: 13:00 Narrative: 07/27/18 13:00 [facility] abd/pel done 06/28/18 showed large volume ascites, heterogeneity of nephrographic enhancement on left without contrast excretion on delayed images. No deficits on neuro exams. It is repeatedly mentioned that an ostomy bag is not to be used for an ascites leak. His creatinine on 07/22 was 1.18. He was seen at an ID clinic yesterday, 07/26, and it is documented he was alert and oriented during that visit. He was given cefazolin for MSSA spontaneous bacterial peritonitis and bacteremia. He will be taking 20 mg atorvastatin daily
[2018-07-28 05:42] LABS: Anion Gap 12.4 mmol/L (6.8-13.8); BUN/Creatinine Ratio 26.2 (9.0-21.6); Calcium * 8.4 mg/dL (7.9-10.9); Carbon Dioxide 24.3 mmol/L (24-32.6); Estimated Creat Clear 55.1; Potassium 3.7 mmol/L (3.4-4.6)
--- NOTE | 2018-07-28 06:48 | PN ---
Subjective - Date and Time Seen Date: 07/28/18 Time: 05:56 Subjective Narrative: Patient reports feeling better, but is aware his memory isn't what it should be. He states this has been a problem [facility]. Denies new concerns. Nursing reports he is saying he's had bowel movements, but has not actually had one. Objective - Review of Systems Generalized/Overall Review: Denies: Fever Respiratory: Denies: Cough, Shortness of Breath Cardiac: Denies: Chest Pain, Edema Abdominal: Denies: Vomiting Genitourinary Symptoms: Denies: Urgency - Vitals Vitals: Last Vital Signs Temp 36.9 C 07/28/18 03:00 Pulse 80 07/28/18 03:00 Resp 16 07/28/18 03:00 BP 126/64 07/28/18 03:00 Pulse Ox 99 07/28/18 03:00 - Abnormal Lab Findings Abnormal Lab Findings: Abnormal Lab Results 07/27/18 07/27/18 07/28/18 Range/Units 08:30 11:52 05:05 BUN 43 H 34 H (6-23) mg/dL Creatinine 1.56 H D (0.4-1.4) mg/dL Est GFR (Non-Af Amer) 47 L D 59 L D (60-130) mL/min BUN/Creatinine Ratio 27.6 H 26.2 H (9.0-21.6) Random Glucose 189 H D (70-110) mg/dL Ammonia 71.0 H (11-35) mcmol/L - Exam Constitutional: Present: Alert - Oriented to self and day of the week, can not state month, No distress Respiratory: Present: normal breath sounds, no respiratory distress Cardiovascular/Chest: Present: regular rate, rhythm Abdomen: Present: Normal bowel sounds, soft, nontender, nondistended Extremity: Absent: lower extremity edema Neurologic: Present: other - Oriented to self and day of the week, not date. Improved from yesterday morning Appearance: Present: appropriate appearance Eye contact: Present: cooperative, good eye contact Assessment/Plan - Problems/Diagnosis (1) Confusion Problem: Acute Narrative: Confusion is mproving, but still significant. He was working as recently as one month ago. He states his confusion has been present [facility], but unable to verify the accuracy of his statement. Will need to speak with his today. 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 May be secondary to elevated ammonia. Lactulose started yesterday, but has not yet had a BM. Dose increased today, and will monitor for improvement with bowel movements. (2) Acute kidney injury Problem: Resolved Narrative: Improved after fluids. Creatinine is now 1.3, down from 2.04. (3) Liver cirrhosis Problem: Chronic Qualifiers: Hepatic cirrhosis type: unspecified hepatic cirrhosis Ascites presence: without ascites Qualified Code(s): K74.60 - Unspecified cirrhosis of liver Narrative: No ascites currently, but he has significant cirrhosis last month, requiring multiple paracenteses. He was treated with cefazolin for 4 weeks for SBP, and finished treatment earlier this week. His ammonia level was elevated, which is possible source of his confusion. (4) Renal cell carcinoma Problem: Chronic (5) Hypoalbuminemia Problem: Chronic Narrative: 3.0 on admission. Encourage proper nutrition. (6) Status post nephrectomy Problem: Chronic (7) Nonalcoholic hepatosteatosis Problem: Chronic
[2018-07-28] MEDS: LEVOTHYROXINE SODIUM 100 MCG TABLET PO SCH (06:57)
[2018-07-28] MEDS ORDERED: SPIRONOLACTONE 100 MG TABLET PO SCH (09:00)
[2018-07-28] MEDS ORDERED: FUROSEMIDE 80 MG TABLET PO SCH (09:00)
[2018-07-28] MEDS ORDERED: glipiZIDE 5 MG TABLET PO SCH (09:00)
[2018-07-28] MEDS ORDERED: LISINOPRIL 2.5 MG TABLET PO SCH (09:00)
[2018-07-28] MEDS ORDERED: LACTULOSE 10 G/15 ML BTL PO SCH (09:00)
[2018-07-28] MEDS ORDERED: PANTOPRAZOLE SODIUM 40 MG TABLET.EC PO SCH (09:00)
[2018-07-28] MEDS ORDERED: GEMFIBROZIL 600 MG TABLET PO SCH (09:00)
--- NOTE | 2018-07-28 11:52 | DS ---
(1) Confusion Problem: Acute (2) Acute kidney injury Problem: Resolved (3) Liver cirrhosis Problem: Chronic Qualifiers: Hepatic cirrhosis type: unspecified hepatic cirrhosis Ascites presence: without ascites Qualified Code(s): K74.60 - Unspecified cirrhosis of liver (4) Renal cell carcinoma Problem: Chronic (5) Hypoalbuminemia Problem: Chronic (6) Status post nephrectomy Problem: Chronic (7) Nonalcoholic hepatosteatosis Problem: Chronic Description of Stay: Patient with PMHx of nonalcoholic hepatic steatosis, cirrhosis, renal cancer S/P nephrectomy, recently finished treatment for SBP with 4 weeks of cefazolin. He and his were on the way home from an ID appt in , and he developed acute confusion. In the ED, he was afebrile and did not have an elevated WBC. He had an acute kidney injury, and was admitted for his acute confusion. Negative CT Head. Ammonia was found to be elevated to 71, and lactulose was started. No acute findings on physical exam. He did not have an immediate response to the lactulose, but his mentation improved. Acute kidney injury resolved after one liter NS. 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 He felt comfortable going home on the day of discharge. Some changes had been made to his cholesterol medicine. He was to stop gemfibrizol, and start 20 mg atorvastatin. His reports they have not yet received the atorvastatin, so will send another prescription. Procedures Performed: none Results and Findings: Pending Mircobiology Results 07/27/18 02:00 Blood Blood Culture - Preliminary NO GROWTH 24 HOURS 07/27/18 01:40 Blood Blood Culture - Preliminary NO GROWTH 24 HOURS Lab Pending Results 07/27/18 01:40: WBC 5.4, RBC 4.19 L, Hgb 12.3 L, Hct 37.0 L, MCV 88.3, MCH 29.4, MCHC 33.2, RDW 19.5 H, Plt Count 141 L, MPV 9.7, Immature Gran % (Auto) 0.20, Immature Gran # (Auto) 0.01, Neutrophils % 72.2, Lymphocytes % 15.0 L, Monocytes % 9.8 H, Eosinophils % 2.2, Basophils % 0.6, Nucleated RBC % 0.0, Neutrophils # 3.9, Lymphocytes # 0.81 L, Monocytes # 0.5, Eosinophils # 0.1, Absolute Basophils 0.0 07/27/18 01:40: Sodium 135, Plasma Sodium 135, Potassium 4.5, Chloride 99, Carbon Dioxide 27.4, Anion Gap 13.1, BUN 49 H D, Creatinine 2.02 H D, Est GFR (Non-Af Amer) 35 L D, BUN/Creatinine Ratio 24.3 H, Random Glucose 116 H, Calcium 9.7, Calcium Adj for Albumin 10.2, Total Bilirubin 1.1, AST 54 H, ALT 14 L, Alkaline Phosphatase 110, Total Protein 8.6 H, Albumin 3.0 L, Ethyl Alcohol Less than 3.0 07/27/18 01:40: TSH 2.133 07/27/18 02:10: Urine Color Yellow, Urine Appearance Clear, Urine pH 6.0, Ur Specific [place] 1.015, Urine Protein Negative, Urine Glucose (UA) Negative, Urine Ketones Negative, Urine Blood Negative, Urine Nitrate Negative, Urine Bilirubin Negative, Urine Urobilinogen Normal, Ur Leukocyte Esterase Negative, Urine RBC 0-5, Urine WBC None seen, Ur Epithelial Cells 0-5, Urine Bacteria None seen, Urine Culture Comments No culture indicated 07/27/18 02:10: Urine Opiates Screen Negative, Barbiturate Screen Negative, Ur Phencyclidine Scrn Negative, Urine Amphetamine Negative, U Benzodiazepines Scrn Negative, Urine Cocaine Screen Negative, Urine Marijuana (THC) Negative 07/27/18 08:30: Ammonia 71.0 H 07/27/18 11:52: Sodium 135, Plasma Sodium 135, Potassium 3.6, Chloride 102, Carbon Dioxide 26.1, Anion Gap 10.5, BUN 43 H, Creatinine 1.56 H D, Est GFR (Non-Af Amer) 47 L D, BUN/Creatinine Ratio 27.6 H, Random Glucose 86, Calcium 8.6 07/28/18 05:05: Sodium 137, Plasma Sodium 138, Potassium 3.7, Chloride 104, Carbon Dioxide 24.3, Anion Gap 12.4, BUN 34 H, Creatinine 1.30, Est GFR (Non-Af Amer) 59 L D, BUN/Creatinine Ratio 26.2 H, Random Glucose 189 H D, Calcium 8.4 Discharge Location: Home Disposition: Home Health Service Home Health Agency: [facility] Home Health Condition: Good Face to Face Encounter completed per [facility] Guidelines: Yes Discharge Activity: Activity as tolerated Discharge Diet: Low salt Additional Patient Instructions (free text): Resume prior nursing services through [facility]. Move up appointment at the [facility] with [facility]. Current appointment set for 11/08/18 at 09:30am Keep other previously scheduled appointments that the [facility] has made. Prescriptions (Any new or edited meds): Lactulose [Enulose] 30 g PO BID #1 btl Complete Home Medications List: Complete Home Medication List: Levothyroxine Sodium [Synthroid] 100 mcg PO DAILY 06/21/18 Lisinopril 2.5 mg PO DAILY 06/21/18 glipiZIDE [Glipizide] 5 mg PO DAILY 06/21/18 metFORMIN HCL [Glucophage] 1,000 mg PO DAILY 06/21/18 Aspirin [Aspirin Chewable] 81 mg PO DAILY 07/27/18 Pantoprazole Sodium 40 mg PO DAILY 07/27/18 Spironolactone [Aldactone] 100 mg PO DAILY 07/27/18 Furosemide [Lasix] 80 mg PO DAILY tablet 07/28/18 Lactulose [Enulose] 30 g PO BID #1 btl 07/28/18
[2018-07-28 14:27] VITALS: BP 127/52
== END 2018-07-28 14:50 | disposition home health service (06) ==
LOC: ER 01:19 → MS 01:19
PROVIDERS: ADMIT Family Medicine; ATTEND Family Medicine
DX: E03.9 Hypothyroidism, unspecified; K75.81 Nonalcoholic steatohepatitis (NASH); K74.69 Other cirrhosis of liver; R40.2243 Coma scale, best verbal response, confused conversation, at hospital admission; E88.09 Other disorders of plasma-protein metabolism, not elsewhere classified; Z90.5 Acquired absence of kidney; E11.9 Type 2 diabetes mellitus without complications; Z79.84 Long term (current) use of oral hypoglycemic drugs; R40.2143 Coma scale, eyes open, spontaneous, at hospital admission; C64.1 Malignant neoplasm of right kidney, except renal pelvis; N17.9 Acute kidney failure, unspecified; E78.5 Hyperlipidemia, unspecified; R40.2363 Coma scale, best motor response, obeys commands, at hospital admission; I10 Essential (primary) hypertension; R40.2413 Glasgow coma scale score 13-15, at hospital admission; K68.9 Other disorders of retroperitoneum; R41.0 Disorientation, unspecified
CPT/HCPCS: 36415; 70450; 80048; 80053; 80307; 80320; 81001; 82140; 84443; 85025; 87040; 94762; 96360; 96361; 97161; 99285; G0378; G0479; G0481; G8978; G8979; G8980